=== PATIENT | male | born 1980 | race Caucasian/White ===

== ENCOUNTER 2019-06-19 08:38 | Day surgery (SDC) | payer BC ==
[~2019-06-19 08:38] MED LIST: Acetaminophen TAB* 325 MG PO ONE; Buffered Lidocaine 1% SYRIN* 1 ML/SYRINGE INTRADERM ONE; Famotidine IV* 10 MG/ML 2 ML (20 mg) IV ONE; Gabapentin CAP(*) 300 MG PO ONE; Lactated Ringers 1000 ML Bag* 1,000 ML IV SCH
[2019-06-19] MEDS ORDERED: ceFAZolin 2 GM in NS PREMIX(*) 2 GM/100 ML BAG IVPB ONE (09:01)
[2019-06-19] MEDS ORDERED: Gabapentin CAP(*) 300 MG ONE (09:01)
[2019-06-19] MEDS ORDERED: Acetaminophen TAB* 325 MG ONE (09:01)
[2019-06-19] MEDS ORDERED: Famotidine IV* 10 MG/ML 2 ML (20 mg) ONE (09:01)
[2019-06-19] MEDS ORDERED: Naloxone* 0.4 MG/ML 1 ML VIAL IV PRN (09:08)
[2019-06-19] MEDS ORDERED: DiMENhydriNATE IV* 50 MG/ML VIAL IV PUSH PRN (09:08)
[2019-06-19] MEDS ORDERED: HYDROcodone/ACETAMIN 5-325 MG* 1 TAB PO PRN (09:08)
[2019-06-19] MEDS ORDERED: Ondansetron INJ* 2 MG/ML VIAL IV PRN (09:08)
[2019-06-19] MEDS ORDERED: BSS OPTH.SOL* BTL ONE (09:31)
[2019-06-19] MEDS ORDERED: fentaNYL* 50 MCG/ML 2 ML VIAL (100 MCG VIAL) ONE (09:31)
[2019-06-19] MEDS ORDERED: Midazolam* 1 MG/ML 2 ML VIAL (2 MG) ONE ×2 (09:31→10:23)
[2019-06-19] MEDS ORDERED: Lidocaine 1% w EPI 1:100,000* MDV 20 ML VIAL ONE (09:31)
[2019-06-19] MEDS ORDERED: Artificial Tear OPHTH.OINT* 3.5 GM ONE (09:31)
[2019-06-19] MEDS ORDERED: Tetracaine 0.5% OPTH.SOL 4 ML* 1 DROP BTL ONE (09:31)
[2019-06-19] MEDS ORDERED: Lidocaine 2% PF * 5 ML VIAL ONE (10:24)
[2019-06-19] MEDS ORDERED: Propofol* 10 MG/ML 20 ML BTL ONE (10:25)
[2019-06-19] MEDS ORDERED: Ketorolac INJ* 30 MG/ML 1 ML VIAL ONE (10:25)
[2019-06-19] MEDS ORDERED: Dexamethasone IV* 4 MG/ML 1 ML (4 MG) ONE (10:25)
[2019-06-19 12:39] VITALS: BP 116/69
== END 2019-06-19 12:51 | disposition home or self-care (01) ==
LOC: OR 08:38
PROVIDERS: ATTEND Plastic Surgery
DX: L72.9 Follicular cyst of the skin and subcutaneous tissue, unspecified (principal); E78.00 Pure hypercholesterolemia, unspecified; L70.9 Acne, unspecified
CPT/HCPCS: 88304; A9270-GY; J0690; J1100; J1885; J2250; J2704; J3010